=== PATIENT | male | born 1990 | race Asian ===

== ENCOUNTER 2019-02-06 04:39 | Emergency (ER) | payer OTHER ==
[~2019-02-06] VITALS: Ht 180.3 cm; Wt 73.0 kg
[2019-02-06] MEDS ORDERED: KETOROLAC 30MG/ML VIAL IV STA (07:47)
[2019-02-06] MEDS ORDERED: ONDANSETRON HCL 4MG/2ML INJ IV STA (07:47)
[2019-02-06 08:25] LABS: CHLORIDE 104 mEq/L (98-107)
[2019-02-06 08:26] LABS: BASOPHILS % 0.3 % (0.0-2.0); EOSINOPHILS % 2.5 % (0.0-5.0); HEMATOCRIT. 46.2 % (42.0-52.0); HEMOGLOBIN. 15.9 g/dL (14.0-18.0); LYMPHOCYTES % 32.6 % (20.0-50.0); MEAN PLATELET VOLUME 9.3 fl (7.4-10.4); MONOCYTES % 6.8 % (2.0-8.0); NEUTROPHILS % 57.8 % (40.0-76.0); PLATELET 292 x1000/uL (130-400); RED BLOOD CELL COUNT 5.13 mill/uL (4.7-6.1)
[2019-02-06 09:31] VITALS: BP 115/71
== END 2019-02-06 09:40 | disposition home or self-care (01) ==
LOC: ER 04:39
DX: R10.11 Right upper quadrant pain (principal); R11.2 Nausea with vomiting, unspecified; R03.0 Elevated blood-pressure reading, without diagnosis of hypertension
CPT/HCPCS: 36415; 76705; 80053; 83690; 85025; 96374; 96375; 99284; J1885; J2405; Z7610